=== PATIENT | female | born 1945 | race Caucasian/White ===

== ENCOUNTER 2019-09-30 11:24 | Inpatient (IN) | payer MEDICARE, OTHER, SELFPAY ==
[2019-09-30] VITALS (15 sets, daily range): BP systolic 129–191; BP diastolic 54–77; PULSE 62–89; RESP 16–20; TEMP 37–37.1; O2SAT 90–100; BMI 47.9
--- NOTE | 2019-09-30 11:36 | CT_ITS ---
WS: [id number] CT CERVICAL TRAUMA TECHNIQUE: Noncontrast CT of the cervical spine with coronal and sagittal reformatted images. CLINICAL INFORMATION: neck pain COMPARISON: None. DLP: 921.[address] scans at [facility] use at least one of these dose optimization techniques: automat ed exposure control; mA and/or kV adjustment per patient size (includes targeted exams where dose is matched to clinical indication); or iterative reconstruction. FINDINGS: Straightening of the normal cervical lordosis. Mild cervical curve. Moderate spondylitic changes. 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 Disc space narrowing worse at C6-7. Moderate facet arthropathy thr oughout the cervical spine. Normal craniocervical junction. Normal C1-C2 articulation. Dens is normal in appearance. Normal occipital condyles. No high-grade spinal canal narrowing. Normal C1 ring. No e vidence of acute fracture or dislocation. Normal prevertebral soft tissues. Azygos fissure. A few nodules in the thyroid. The largest in the ri ght thyroid lobe measuring 5 mm and isthmus measuring 6 mm. Mastoids air cells are well aerated. Notified Kee Byrne DO at 09/30/2019 12:[address]/CT cervical spin wo con* [id number] IMPRESSION: 1. No evidence of acute fracture or dislocation. 2. Moderate spondylitic changes. 3. No high-grade central canal stenosis.
--- NOTE | 2019-09-30 11:36 | ECG_ITS ---
Measurements Intervals Schlater Rate: 64 P: 30 CO: 187 QRS: -18 QRSD: 110 T: 97 QT: 415 QTc: 428 SINUS RHYTHM POSSIBLE ANTERIOR MYOCARDIAL INFARCTION [30 ms Q WAVE IN V3/V4, OR R < 0.2 mV IN V4], OF INDETERMINATE AGE INFERIOR MYOCARDIAL INFARCTION [40+ ms Q WAVE AND/OR ST/T ABNORMALITY IN II/aVF], PROBABLY OLD Compared to ECG 04/01/2018 21:11:24 Sinus arrhythmia no longer present Myocardial infarct finding still present Electronically Signed On 10-01-2019 6:42:53 CDT by Jamin Fontanez M.D. [email or web address]
--- NOTE | 2019-09-30 11:37 | XR_ITS ---
WS: [id number] CHEST XRAY TECHNIQUE: Portable chest. CLINICAL INFORMATION: dyspnea/cough COMPARISON: April 04, 2018 FINDINGS: Heart: Cardiomegaly. Lungs: Lungs are clear. No consolidation or pleural effusion. Chronic emphysematous changes. Bones: Normal visualized bony structures. XR/XR chest 1V portable [id number] IMPRESSION: No acute chest findings
--- NOTE | 2019-09-30 11:39 | W.ED.FEVER ---
HPI - Fever General: Chief Complaint: Fever Stated Complaint: FEVER Time Seen by Provider: 09/30/19 11:27 History of Present Illness: HPI Narrative: 74-year-old female comes planes of fever. She presents here via EMS from a local snf. She evidently has had this for about 3 weeks they reported a T-max at the snf of up to 102 however EMS and our measurements were both at 98. She had previously had work-up for COVID chest x-ray UA and blood cultures all of which were negative. In addition of this she complaining of neck pain however states that began around [place] when she fell and hit her head on a door frame and since then she has had neck pain and stiffness. She states it did not correspond with the onset of this fever. She does have a open diabetic foot ulcer on the left heel and early breakdown on on the right heel. Additionally she has some sores on her sacral area. She denies shortness of breath she denies dysuria urgency or frequency she denies chest pain or abdominal pain no vomiting or diarrhea. There is a report from the snf of a hemoglobin that had gone from 8.4-7.6 although there are no identified points of bleeding. Patient does tell me she is on Coumadin. Associated symptoms: Deny abdominal pain, back/flank pain, chills, chest pain, diarrhea, dysuria, nasal congestion, nausea or vomiting Review of Systems Const: Denies: fever, chills, body aches, change in appetite, fatigue or malaise ENMT: Denies: throat pain, ear pain, nasal discharge or nasal congestion Card: Denies: chest pain, edema, shortness of breath on exertion or shortness of breath when lying down Resp: Denies: shortness of breath, productive cough or non-productive cough GI: Denies: abdominal pain, nausea, vomiting, vomiting blood, coffee grounds in vomit, diarrhea, constipation, bloating, blood in stool or black tarry stool : Denies: flank pain, difficulty urinating, painful urination, urinary frequency or urinary urgency Skin/Breast: Denies: rash or itching COUNTS INCLUDE 234 BEDS AT THE [facility] ED PFSH: Medical History Adenocarcinoma of endometrium, stage 2 Atrial fibrillation CKD (chronic kidney disease) Congestive heart failure Deep vein thrombosis Diabetes mellitus, type II Fibromyalgia Gastric reflux Hyperlipemia Hypothyroid Morbid obesity Pressure ulcer Surgical History H/O hysterectomy with oophorectomy History of bilateral salpingo-oophorectomy (BSO) Hx of cholecystectomy Family History (Updated 09/30/19 @ 16:23 by Boris Roldan MD) Other CAD (coronary artery disease) Diabetes Hypertension Social History (Updated 09/30/19 @ 16:23 by Boris Roldan MD) Smoking and tobacco status: never smoked Alcohol intake: never Substance/Drug Use: never Housing: Snf Marital status: / Physical Exam Const: COMMON NORMALS: no apparent distress GENERAL APPEARANCE: cooperative; not comfortable ORIENTATION/CONSCIOUSNESS: Yes awake, Yes oriented to person, Yes oriented to place and Yes oriented to time HENMT: COMMON NORMALS: normocephalic, head/scalp atraumatic, hearing grossly normal bilaterally, external ears normal, EAC's normal, TM's normal bilaterally, nasal mucous membranes and turbinates normal, moist oral mucous membranes and oropharynx normal HEAD & SCALP: normocephalic and atraumatic NOSE: nasal mucous membranes and turbinates normal EXTERNAL EAR: Yes external ears normal EXTERNAL AUDITORY CANAL: EAC's normal TYMPANIC MEMBRANE: TM's normal bilaterally Eye: COMMON NORMALS: PERRL, EOMs intact bilaterally, conjunctivae normal and no scleral icterus CONJUNCTIVA: Yes conjunctivae normal PUPIL: Yes PERRL Neck/C-Spine: COMMON NORMALS: full ROM, no lymphadenopathy, supple and no JVD Lymph: LYMPHATIC: no lymphadenopathy noted and no lymphedema noted Resp: COMMON NORMALS: normal respiratory effort, no retractions, no use of accessory muscles and clear to auscultation bilaterally AUSCULTATION: clear to auscultation bilaterally Cardio: COMMON NORMALS: no JVD, regular rate, regular rhythm and no murmurs RATE: regular rate RHYTHM: regular rhythm GI: COMMON NORMALS: soft to palpation and no hepatosplenomegaly AUSCULTATION: Yes normoactive bowel sounds PALPATION: Yes soft, No tender, No guarding and Yes no hepatosplenomegaly Extremity: COMMON NORMALS: normal to inspection, normal capillary refill, no clubbing, cyanosis or edema, no calf tenderness and no pedal edema Neuro: SENSORIUM/ORIENTATION: Yes oriented to person, Yes oriented to place and Yes oriented to time Skin: NARRATIVE SKIN EXAM: Open ulcer on the left heel about 2 cm irregular and round appears to be stage II-III. There is a developing ulcer with subcutaneous breakdown on the right heel. There are various buttock and presacral ulcers with partial thickness breakdown as well. No induration or erythema locally to any of these skin ulcerations. Course Vital Signs: Vital signs: Vital Signs Temperature 98.8 F 09/30/19 11:36 Pulse Rate 68 09/30/19 16:51 Respiratory Rate 16 09/30/19 16:51 Blood Pressure 162/77 09/30/19 16:51 Pulse Oximetry 100 09/30/19 16:51 MDM - Fever MDM Narrative: Medical decision making narrative: Still cannot find a definitive source of her fever the only thing I can find at this point is that she may have been back to her bacteremic from the ulcers. We will go ahead and admit her started on vancomycin and complete the work-up and get the cultures back before returning her to the snf. Lab Data: Attestation: I reviewed the patient's lab results. Labs: Lab Results 09/30/19 09/30/19 09/30/19 Range/Units 11:49 12:49 12:51 WBC 5.6 (4.0-10.0) 10^3/ uL RBC 2.93 L (4.1-5.3) 10^6/u L Hgb 8.0 L (11.5-15.3) g/dL Hct 26.7 L (37.0-47.0) % MCV 91.1 (81-99) fL MCH 27.3 L (28.0-34.0) pg MCHC 30.0 (30.0-36.0) g/dL RDW 14.4 (12.1-15.1) % Plt Count 184 (130-400) 10^3/c mm MPV 9.8 (7.4-10.4) fL Neut % (Auto) 73.7 % Lymph % (Auto) 14.4 % Hooker % (Auto) 10.5 % Eos % (Auto) 0.5 % Baso % (Auto) 0.5 % Neut # (Auto) 4.2 (1.8-7.7) 10^3/u L Lymph # (Auto) 0.8 (0.8-4.8) 10^3/u L Hooker # (Auto) 0.6 (0.2-0.9) 10^3/u L Eos # (Auto) 0.0 (0.0-0.8) 10^3/u L Baso # (Auto) 0.0 (0.0-0.1) 10^3/u L Nucleated RBC % (a uto) 0 % Nucleated RBCs # 0.0 /100WBC PT (10.5-13.3) SECO NDS INR (0.8-1.2) Specimen Type Arterial Sample Site Femoral, left ABG pH 7.47 H (7.35-7.45) ABG pCO2 42.3 (35-45) mmHg ABG pO2 66.0 L (80.0-100.0) mmH g ABG HCO3 30.9 H (22-26) mmol/L ABG O2 Saturation 94.0 ABG Base Excess 6.5 H (-2.0-2.0) mmol/ L Chan Test Pos A-a O2 Gradient 30.1 H (5-10) mmHg Hematocrit 38.0 (37-47) % Hgb O2 Saturation 92.1 L (95-100) % Carboxyhemoglobin 1.7 (0.4-20.1) %THgb Methemoglobin 0.3 L (0.4-1.5) % Total Hemoglobin 12.4 (12-16) g/dL Sodium 140.0 (131-143) mmol/L Potassium 3.4 L (3.5-5.0) mmol/L Glucose 213.0 H (70-115) mg/dL Ionized Calcium 1.2 (1.1-1.4) mmol/L O2 Delivery Device Room air FiO2 21.0 % Superintendent Generating Plant ID anonymous Chloride (98-107) mmol/L Carbon Dioxide (22-29) mmol/L Anion Gap (5-19) BUN (8-23) mg/dL Creatinine (0.5-0.9) mg/dL Calculated Osmolal ity (285-295) mOsm/k g Calcium (8.5-10.5) mg/dL Iron (37-145) ug/dL TIBC mcg/dl % Saturation (20-50) % Unsat Iron Binding (112-347) ug/dL Total Bilirubin (0.15-1.2) mg/dL AST (0-32) U/L ALT (0-33) U/L Alkaline Phosphata se (35-105) IU/L NT-Pro-B Natriuret Pep (0-125) pg/mL Total Protein (6.6-8.7) g/dL Albumin (3.5-5.2) g/dL Globulin (1.3-4.6) g/dL Lipase (13-60) U/L Procalcitonin (0-0.5) ng/mL Urine Color Yellow (Yellow) Urine Appearance Clear (CLEAR) Urine pH 5 (5-7) Ur Specific Gravit y 1.010 (1.005-1.030) Urine Protein Neg (Negative) Urine Glucose (UA) Norm (Normal) Urine Ketones Negative (Negative) Urine Blood Neg (Negative) Urine Nitrate Negative (Negative) Urine Bilirubin Neg (NEGATIVE) Urine Urobilinogen Norm (Negative) mg/dL Ur Leukocyte Cassandra ase Negative (Negative) Serum Ketones (Negative) 09/30/19 09/30/19 09/30/19 Range/Units 12:51 12:51 12:51 WBC (4.0-10.0) 10^3/ uL RBC (4.1-5.3) 10^6/u L Hgb (11.5-15.3) g/dL Hct (37.0-47.0) % MCV (81-99) fL MCH (28.0-34.0) pg MCHC (30.0-36.0) g/dL RDW (12.1-15.1) % Plt Count (130-400) 10^3/c mm MPV (7.4-10.4) fL Neut % (Auto) % Lymph % (Auto) % Hooker % (Auto) % Eos % (Auto) % Baso % (Auto) % Neut # (Auto) (1.8-7.7) 10^3/u L Lymph # (Auto) (0.8-4.8) 10^3/u L Hooker # (Auto) (0.2-0.9) 10^3/u L Eos # (Auto) (0.0-0.8) 10^3/u L Baso # (Auto) (0.0-0.1) 10^3/u L Nucleated RBC % (a uto) % Nucleated RBCs # /100WBC PT 21.90 H (10.5-13.3) SECO NDS INR 1.83 H (0.8-1.2) Specimen Type Sample Site ABG pH (7.35-7.45) ABG pCO2 (35-45) mmHg ABG pO2 (80.0-100.0) mmH g ABG HCO3 (22-26) mmol/L ABG O2 Saturation ABG Base Excess (-2.0-2.0) mmol/ L Chan Test A-a O2 Gradient (5-10) mmHg Hematocrit (37-47) % Hgb O2 Saturation (95-100) % Carboxyhemoglobin (0.4-20.1) %THgb Methemoglobin (0.4-1.5) % Total Hemoglobin (12-16) g/dL Sodium 138 (131-143) mmol/L Potassium 3.5 (3.5-5.0) mmol/L Glucose 229 H (70-115) mg/dL Ionized Calcium (1.1-1.4) mmol/L O2 Delivery Device FiO2 % Superintendent Generating Plant ID Chloride 97 L (98-107) mmol/L Carbon Dioxide 29 (22-29) mmol/L Anion Gap 15.5 (5-19) BUN 86 H* (8-23) mg/dL Creatinine 2.5 H (0.5-0.9) mg/dL Calculated Osmolal ity 293 (285-295) mOsm/k g Calcium 9.2 (8.5-10.5) mg/dL Iron (37-145) ug/dL TIBC mcg/dl % Saturation (20-50) % Unsat Iron Binding (112-347) ug/dL Total Bilirubin 0.5 (0.15-1.2) mg/dL AST 42 H (0-32) U/L ALT 22 (0-33) U/L Alkaline Phosphata se 108 H (35-105) IU/L NT-Pro-B Natriuret Pep (0-125) pg/mL Total Protein 6.1 L (6.6-8.7) g/dL Albumin 2.7 L (3.5-5.2) g/dL Globulin 3.4 (1.3-4.6) g/dL Lipase 106 H (13-60) U/L Procalcitonin (0-0.5) ng/mL Urine Color (Yellow) Urine Appearance (CLEAR) Urine pH (5-7) Ur Specific Gravit y (1.005-1.030) Urine Protein (Negative) Urine Glucose (UA) (Normal) Urine Ketones (Negative) Urine Blood (Negative) Urine Nitrate (Negative) Urine Bilirubin (NEGATIVE) Urine Urobilinogen (Negative) mg/dL Ur Leukocyte Cassandra ase (Negative) Serum Ketones Negative (Negative) 09/30/19 Range/Units 12:51 WBC (4.0-10.0) 10^3/ uL RBC (4.1-5.3) 10^6/u L Hgb (11.5-15.3) g/dL Hct (37.0-47.0) % MCV (81-99) fL MCH (28.0-34.0) pg MCHC (30.0-36.0) g/dL RDW (12.1-15.1) % Plt Count (130-400) 10^3/c mm MPV (7.4-10.4) fL Neut % (Auto) % Lymph % (Auto) % Hooker % (Auto) % Eos % (Auto) % Baso % (Auto) % Neut # (Auto) (1.8-7.7) 10^3/u L Lymph # (Auto) (0.8-4.8) 10^3/u L Hooker # (Auto) (0.2-0.9) 10^3/u L Eos # (Auto) (0.0-0.8) 10^3/u L Baso # (Auto) (0.0-0.1) 10^3/u L Nucleated RBC % (a uto) % Nucleated RBCs # /100WBC PT (10.5-13.3) SECO NDS INR (0.8-1.2) Specimen Type Sample Site ABG pH (7.35-7.45) ABG pCO2 (35-45) mmHg ABG pO2 (80.0-100.0) mmH g ABG HCO3 (22-26) mmol/L ABG O2 Saturation ABG Base Excess (-2.0-2.0) mmol/ L Chan Test A-a O2 Gradient (5-10) mmHg Hematocrit (37-47) % Hgb O2 Saturation (95-100) % Carboxyhemoglobin (0.4-20.1) %THgb Methemoglobin (0.4-1.5) % Total Hemoglobin (12-16) g/dL Sodium (131-143) mmol/L Potassium (3.5-5.0) mmol/L Glucose (70-115) mg/dL Ionized Calcium (1.1-1.4) mmol/L O2 Delivery Device FiO2 % Superintendent Generating Plant ID Chloride (98-107) mmol/L Carbon Dioxide (22-29) mmol/L Anion Gap (5-19) BUN (8-23) mg/dL Creatinine (0.5-0.9) mg/dL Calculated Osmolal ity (285-295) mOsm/k g Calcium (8.5-10.5) mg/dL Iron 33 L (37-145) ug/dL TIBC 254 mcg/dl % Saturation 12.9 L (20-50) % Unsat Iron Binding 221 (112-347) ug/dL Total Bilirubin (0.15-1.2) mg/dL AST (0-32) U/L ALT (0-33) U/L Alkaline Phosphata se (35-105) IU/L NT-Pro-B Natriuret Pep 1235 H (0-125) pg/mL Total Protein (6.6-8.7) g/dL Albumin (3.5-5.2) g/dL Globulin (1.3-4.6) g/dL Lipase (13-60) U/L Procalcitonin 0.39 (0-0.5) ng/mL Urine Color (Yellow) Urine Appearance (CLEAR) Urine pH (5-7) Ur Specific Gravit y (1.005-1.030) Urine Protein (Negative) Urine Glucose (UA) (Normal) Urine Ketones (Negative) Urine Blood (Negative) Urine Nitrate (Negative) Urine Bilirubin (NEGATIVE) Urine Urobilinogen (Negative) mg/dL Ur Leukocyte Cassandra ase (Negative) Serum Ketones (Negative) Discharge Plan Discharge Patient Disposition: Admitted As Inpatient Admit Provider: Rubina Bragg Clinical Impression: Fever of unknown origin, Congestive heart failure, Diabetes mellitus, type II, CKD (chronic kidney disease) Condition: Stable Interventions: ED Discharge Assessment Last Done: 09/30/19 16:51 Coding Level of Care Code ED Stock Control Clerk for Mark Fwd Exam Comprehensive
[2019-09-30 11:59] LABS: ABG PH Result 7.47 (7.35-7.45); Blood Gas Sample Site Femoral, left; Blood Gas Sample Type Arterial; Carboxyhemoglobin 1.7 %THgb (0.4-20.1); Ionized Calcium Level - ABG 1.2 mmol/L (1.1-1.4); Oxygen Device ROOM AIR; Potassium Level - ABG 3.4 mmol/L (3.5-5.0)
--- NOTE | 2019-09-30 12:32 | PC.NURSE ---
Pt returned from CT
--- NOTE | 2019-09-30 12:39 | CT_ITS ---
WS: [id number] Noncontrast CT right foot TECHNIQUE: Noncontrast CT right foot with coronal and sagittal reformatted images. CLINICAL INFORMATION: diabetic heel ulcer COMPARISON: None. DLP: 179.[address] scans at [facility] use at least one of these dose optimization techniques: automat ed exposure control; mA and/or kV adjustment per patient size (includes targeted exams where dose is matched to clinical indication); or iterative reconstruction. FINDINGS:Ulceration overlying the calcaneus. No evidence of bony destruction to indicate osteomyeliti s. No convincing evidence of osteomyelitis. Diffuse soft tissue edema lower leg and ankle. Normal ankle mortise. Normal talar dome. Degenerative arthritis at the ankle mortise. Mild plantar and Achilles calcaneal spurring. Advanced degenerative a rthritis involving the midfoot and forefoot worse at the TMT joint. Osteopenia. Attempted notification Kee Byrne DO at 09/30/2019 2:[address]/CT foot RT wo con* [id number] IMPRESSION: 1. No definite evidence of calcaneal osteomyelitis. Soft tissue Ulceration ove rlying the calcaneus. 2. Diffuse soft tissue edema lower leg and ankle. 3. No drainable abscess or fluid collection. 4. Advanced degenerative changes with osteopenia involving the midfoot.
[2019-09-30] MEDS: morphine 4 mg/mL SDV 1 mL 2 MG IVP (12:41)
[2019-09-30] MEDS: ondansetron 2 mg/ML SDV 2 mL 4 MG IVP (12:41)
--- NOTE | 2019-09-30 12:54 | PC.NURSE ---
Pt brief wet, pt given clean brief and michelle-care after cath. Heel boots placed on pt.
[2019-09-30 13:07] LABS: Basophils % 0.5 %; Eosinophils % 0.5 %; Hematocrit 26.7 % (37.0-47.0); Lymphocytes # 0.8 10^3/uL (0.8-4.8); Lymphocytes % 14.4 %; Mean Corpuscular Hemoglobin 27.3 pg (28.0-34.0); Mean Corpuscular Volume 91.1 fL (81-99); Mean Platelet Volume 9.8 fL (7.4-10.4); Monocytes # 0.6 10^3/uL (0.2-0.9); Monocytes % 10.5 %; Neutrophils # 4.2 10^3/uL (1.8-7.7); Neutrophils % 73.7 %; Nucleated Red Blood Cells % 0 %; Platelet Count 184 10^3/cmm (130-400); Red Blood Count 2.93 10^6/uL (4.1-5.3); Red Cell Distribution Width 14.4 % (12.1-15.1); White Blood Count 5.6 10^3/uL (4.0-10.0)
[2019-09-30 13:08] LABS: Add Urine Microscopic? NO; Bilirubin Urine Neg (NEGATIVE); Blood Urine Neg (Negative); Glucose Urine UA Norm (Normal); Ketones Urine Negative (Negative); Leukocyte Esterase Urine Negative (Negative); Nitrate Urine Negative (Negative); Protein Urine Neg (Negative); Urine Appearance Clear (CLEAR); Urine Color Yellow (Yellow); Urobilinogen Urine Norm (Negative); pH Urine 5 (5-7)
[2019-09-30 13:22] LABS: Ketone (Acetest) Serum Negative (Negative)
[2019-09-30 13:29] LABS: Alanine Aminotransferase 22 U/L (0-33); Albumin Level 2.7 g/dL (3.5-5.2); Alkaline Phosphatase 108 IU/L (35-105); Anion Gap 15.5 (5-19); Aspartate Amino Transferase 42 U/L (0-32); Calcium 9.2 mg/dL (8.5-10.5); Carbon Dioxide 29 mmol/L (22-29); Chloride 97 mmol/L (98-107); Globulin 3.4 g/dL (1.3-4.6); Glucose 229 mg/dL (65-115); Lipase 106 U/L (13-60); Osmolality Calculated 293 mOsm/kg (285-295); Potassium 3.5 mmol/L (3.5-5.1); Sodium 138 mmol/L (136-145); Total Bilirubin 0.5 mg/dL (0.15-1.2); Total Protein 6.1 g/dL (6.6-8.7)
[2019-09-30 13:30] LABS: Blood Urea Nitrogen 86 mg/dL (8-23)
--- NOTE | 2019-09-30 13:49 | PC.NURSE ---
Pt to CT
--- NOTE | 2019-09-30 14:15 | CT_ITS ---
WS: [id number] NONCONTRAST CT LEFT FOOT TECHNIQUE: Noncontrast CT left foot with coronal and sagittal reformatted images. CLINICAL INFORMATION: ulcer COMPARISON: None. DLP: 242.[address] scans at [facility] use at least one of these dose optimization techniques: automat ed exposure control; mA and/or kV adjustment per patient size (includes targeted exams where dose is matched to clinical indication); or iterative reconstruction. FINDINGS: Diffuse soft tissue edema lower leg and ankle and foot. No drainable fluid collections or abscess. Re ported soft tissue ulceration overlying the calcaneus. Small amount of fluid along the plantar portio n of the calcaneus presumably corresponds to area of ulceration. No evidence of underlying bone destr uction or periosteal reaction in the calcaneus to indicate osteomyelitis. Plantar and Achilles calcaneal spurring. Advanced degenerative changes involving the midfoot worse at the TMT joint with dorsal spurring. Subchondral cystic change involving the metatarsal bases. IP mackenzie nt narrowing. Normal medial and lateral malleolus. Normal talar dome. Vascular calcification. CT/CT foot LT wo con* [id number] IMPRESSION: 1. No evidence of osteomyelitis. 2. Small amount of focal edema and fluid along the plantar calcaneal soft tiss ues presumably corresponds to ulceration. No drainable abscess or fluid collect ion. 3. Extensive subcutaneous edema involving the lower leg and ankle. 4. Advanced degenerative arthritis worse involving the midfoot and TMT joint.
[2019-09-30 15:18] LABS: ABG PCO2 42.3 mmHg (35-45); Alveolar-Arterial Oxygen Gradi 30.1 mmHg (5-10); Base Excess ABG 6.5 mmol/L (-2.0-2.0); Blood Gas Allen Test Pos; HCO3 ABG 30.9 mmol/L (22-26); HGB O2 Sat 92.1 % (95-100); Methemoglobin 0.3 % (0.4-1.5); Total Hemoglobin 12.4 g/dL (12-16)
--- NOTE | 2019-09-30 16:03 | USCV_ITS ---
Sheri Acosta Age: 74 Gender: F : 1945 Exam Date: 09/30/2019 17:03 Ordering Phys: Boris Roldan MD Technologist: Marilyn Montero [place] [facility] [place]ication: SWELLING HISTORY: Lower extremity swelling. PROCEDURES: Venous duplex imaging was performed in bilateral lower extremities. The following venous structures were evaluated: common femoral vein, profunda vein, proximal portion of the greater saphenous vein, superficial femoral vein, and the popliteal vein. In addition, the posterior tibial and peroneal trunk were evaluated. Serial compression, augmentation maneuvers, and spectral Doppler flow evaluation were performed. FINDINGS: Normal 2-D Doppler and augmentation and compressibility throughout the lower extremity venous structures. Additional imaging through the proximal calf veins also reveals no thrombus. Limited evaluation of the greater saphenous vein is patent with no thrombus.. The veins were found to be easily compressible with spontaneous blood flow. Non pulsatile flow pattern. CONCLUSIONS No evidence of DVT in the above-mentioned identifiable veins. Dr Krishna Padilla MD [facility] (Electronically Signed) Final Date: 30 September 2019 18:05 S
--- NOTE | 2019-09-30 16:08 | CT_ITS ---
WS: [id number] CT CHEST, ABDOMEN, AND PELVIS TECHNIQUE: Noncontrast CT of the chest, abdomen, and pelvis with coronal and sagittal reformatted parmjit ges. CLINICAL INFORMATION: sepsis COMPARISON: None. DLP: 3371.[address] scans at [facility] use at least one of these dose optimization techniques: automat ed exposure control; mA and/or kV adjustment per patient size (includes targeted exams where dose is matched to clinical indication); or iterative reconstruction. CT CHEST: Small bilateral pleural effusions. Bibasilar atelectasis. No mediastinal or hilar lymphadenopathy. No rmal caliber thoracic aorta. No axillary lymphadenopathy. Azygos lobe. Shallow inspiration. Mild photography editor tito emphysematous changes. Cardiomegaly. Hypertrophic changes thoracic spine. Mild thoracic curve wit h mild thoracic kyphosis. CT ABDOMEN AND PELVIS: Prior cholecystectomy and hysterectomy. Hepatomegaly with a large left hepatic lobe. Noncontrast live r is otherwise normal. Cholecystectomy clips. Noncontrast spleen is normal. Small splenule. Adrenal glands are normal. Normal GE junction. Vascular calcification. Adrenal glands are normal. No hydronephrosis. No obstructing renal or ureteral calculi. Urine distended bladder. Aortic calcificati on. No periaortic retroperitoneal lymphadenopathy. Fat-containing umbilical hernia. No inguinal lymphadenopathy. No pelvic lymphadenopathy. Probable hem angioma L3 vertebral body. CT/CT chest abd pel wo con IMPRESSION: 1. Small bilateral pleural effusions with bibasilar atelectasis. 2. No mediastinal or hilar lymphadenopathy. 3. Prior hysterectomy and cholecystectomy. 4. Hepatomegaly. Enlarged left hepatic lobe. Recommend correlation with liver function tests. Normal noncontrast spleen. 5. No hydronephrosis in either kidney. 6. Normal caliber abdominal aorta. 7. No free fluid in the pelvis. 8. Urine distended bladder. 9. Fat-containing umbilical hernia. 10. No acute abdominal or pelvic findings.
--- NOTE | 2019-09-30 16:19 | PM.HP ---
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 Most of the history was taken from the group home on phone. Patient was apparently transferred to [facility] from [facility] 2 weeks ago where she was admitted for a possible sepsis. As per the nursing in charge at [facility] patient was on ampicillin 500 mg 4 times a day which she last took on September 15. Because patient continued to have fevers going up to 101 Fahrenheit blood work was done along with urine analysis and COVID 19 testing which all came back negative. Patient's COVID 19 test was negative as per the group home on September 23. On evaluation patient is lying comfortably in bed, AO x3 states he has been transferred over here because she has been having had fevers. Patient denies of having any dysuria, cough, shortness of breath but complains of having nausea, 2-3 episodes of vomiting in last 1 week when vomitus contained of food particles, not bloodstained not foul-smelling along with 2-3 episodes of diarrhea. Patient states she has been having diarrhea for a long time because of history of pancreatitis and to her diarrhea seems to be the same as her baseline. Fever is intermittent high is going up to 101 Fahrenheit, not associated with chills or rigors. Patient is also complaining of mild abdominal pain but denies of having any dizziness, palpitations, headache. She is complaining of mild pain in her right leg. Patient is also complaining of pain in her back and neck which she states is her baseline. In the ER blood work showed hemoglobin of 8, normal white count without any left shift, subtherapeutic INR, hypoxia on ABG, creatinine of 2.5 with elevated BUN and a normal UA. Review of Systems Const: Reports: fever; Denies: chills, body aches, change in appetite, malaise, night sweats, diaphoresis, change in sleep pattern, daytime sleepiness or snoring Eyes: Denies: change in vision, blurry vision, photophobia, eye discomfort or eye discharge ENMT: Denies: throat pain, enlarged tonsils, hoarseness, mouth pain, oral sores/lesions, dry mouth, tinnitus, nasal congestion or post nasal drip Card: Denies: chest pain, palpitations, irregular heart rhythm, edema, swelling of feet/ankles, lightheadedness, syncope, pre-syncope, shortness of breath on exertion, shortness of breath when lying down, leg pain with exertion or bluish discoloration of hands/feet Resp: Denies: shortness of breath, productive cough, non-productive cough, wheezing, stridor, pain on inspiration, change in phlegm color, coughing up blood or chest congestion GI: Reports: abdominal pain, nausea, vomiting and diarrhea; Denies: vomiting blood, coffee grounds in vomit, difficulty swallowing, heartburn/indigestion, constipation, bloating, cramping, change in bowel habits, painful bowel movements, blood in stool or black tarry stool : Denies: flank pain, painful urination, urinary frequency, urinary urgency, urinary hesitancy, nighttime urination or blood in urine Musc: Reports: neck pain and back pain; Denies: extremity pain, joint pain, joint swelling, redness, joint stiffness or limited range of motion Neuro: Denies: headache, numbness in extremities, weakness in extremities, changes in sensation, lack of coordination, difficulty walking, frequent falls, dizziness, vertigo, confusion, slurred speech, difficulty communicating thoughts or seizure-like activity Psych: Denies: anxiety, depression, mood swings, panic attacks, hopelessness or irritability Endo: Denies: excessive urination, excessive thirst, tired all the time, cold intolerance, excessive sweating, flushing or heat intolerance Ford/Lymph: Denies: easy bruising or easy bleeding All/Imm: Denies: tongue swelling, facial swelling or acute wheezing Medications/Allergies Home Medications Medication Instructions Recorded Confirmed Last Taken Type Barrier Cream See Rx Instructions .ROUTE .COMPLEX 09/30/19 09/30/19 09/30/19 History Prostat 30ml See Rx Instructions .ROUTE .COMPLEX 09/30/19 09/30/19 09/30/19 History Skin Prep Wipes 09/30/19 09/30/19 Unknown History acetaminophen 500 mg PO Q4H PRN 09/30/19 09/30/19 09/30/19 09:22 History amiodarone 100 mg PO DAILY 09/30/19 09/30/19 09/30/19 09:22 History amlodipine 5 mg PO DAILY 09/30/19 09/30/19 Unknown History atorvastatin 20 mg PO DAILY 09/30/19 09/30/19 09/29/19 20:47 History baclofen 2.5 mg PO TID PRN 09/30/19 09/30/19 09/30/19 09:22 History bisacodyl 10 mg NC DAILY PRN 09/30/19 09/30/19 Unknown History collagenase clostridium histo. See Rx Instructions .ROUTE .COMPLEX 09/30/19 09/30/19 Unknown History [Santyl] dicyclomine 10 mg PO TID 09/30/19 09/30/19 09/29/19 History ergocalciferol (vitamin D2) 50,000 unit PO Q7D 09/30/19 09/30/19 Unknown History gabapentin 600 mg PO TID 09/30/19 09/30/19 09/30/19 09:22 History honey [MediHoney (honey)] See Rx Instructions .ROUTE .COMPLEX 09/30/19 09/30/19 09/29/19 History insulin aspart U-100 [Novolog 40 unit SUBCUT TID 09/30/19 09/30/19 Unknown History Flexpen U-100 Insulin] insulin degludec [Tresiba 60 unit SUBCUT QAM 09/30/19 09/30/19 09/29/19 History FlexTouch U-200] levothyroxine 100 mcg PO DAILY 09/30/19 09/30/19 09/30/19 05:31 History hgbkyz-zffzhfvk-sfhriwy [Creon] 2 cap PO TID 09/30/19 09/30/19 09/30/19 09:22 History menthol See Rx Instructions .ROUTE .COMPLEX 09/30/19 09/30/19 Unknown History menthol [Biofreeze (menthol)] See Rx Instructions .ROUTE .COMPLEX 09/30/19 09/30/19 Unknown History metolazone 5 mg PO EVERY OTHER DAY 09/30/19 09/30/19 09/30/19 History metoprolol succinate 37.5 mg PO DAILY 09/30/19 09/30/19 09/29/19 History kytzdjkjcvxr-tdhh-cnmue acid 1 tab PO DAILY 09/30/19 09/30/19 09/30/19 09:22 History [Multi Complete with Iron] pantoprazole [Protonix] 40 mg PO DAILY 09/30/19 09/30/19 09/30/19 09:22 History polyethylene glycol 3350 [Miralax] 17 g PO DAILY PRN 09/30/19 09/30/19 Unknown History sennosides-docusate sodium 1 tab PO BID PRN 09/30/19 09/30/19 09/29/19 History [Senna-S] sodium phosphates [Enema 118 ml NC DAILY PRN 09/30/19 09/30/19 Unknown History Disposable] torsemide 20 mg PO DAILY 09/30/19 09/30/19 09/30/19 09:22 History warfarin See Rx Instructions .ROUTE .COMPLEX 09/30/19 09/30/19 09/28/19 History warfarin See Rx Instructions .ROUTE .COMPLEX 09/30/19 09/30/19 09/29/19 History Allergies Allergy/AdvReac Type Severity Reaction Status Date / Time cortisone Allergy ALGY-Anaphy Verified 09/30/19 11:37 laxis PFSH Acute PFSH: Medical History Adenocarcinoma of endometrium, stage 2 Atrial fibrillation CKD (chronic kidney disease) Congestive heart failure Deep vein thrombosis Diabetes mellitus, type II Fibromyalgia Gastric reflux Hyperlipemia Hypothyroid Morbid obesity Pressure ulcer Surgical History H/O hysterectomy with oophorectomy History of bilateral salpingo-oophorectomy (BSO) Hx of cholecystectomy Family History (Updated 09/30/19 @ 16:23 by Boris Roldan MD) Other CAD (coronary artery disease) Diabetes Hypertension Social History (Updated 09/30/19 @ 16:23 by Boris Roldan MD) Smoking and tobacco status: never smoked Alcohol intake: never Substance/Drug Use: never Housing: Residential Marital status: / Vitals/I&O/Wt Last Vital Signs Temp 98.8 F 09/30/19 11:36 Pulse 65 09/30/19 16:00 Resp 16 09/30/19 16:00 BP 167/77 09/30/19 16:00 Pulse Ox 98 09/30/19 16:00 Weight last 48 hrs Weight 122.924 kg Physical Exam Narrative: EXAM NARRATIVE: General: No acute distress, AO x3, morbidly obese, lying comfortably in bed HEENT: PERRLA, pupils bilaterally equal and reactive Chest: Normal vesicular breath sounds, decreased air entry bilateral bases, associated with occasional rhonchi n CVS: S1-S2 regular, no murmurs, no tachycardia, no gallops, no rubs Abdomen: Soft, nontender, no organomegaly, bowel sounds present Neuro: No focal deficits, no facial deformity, AO x3, power 5/5 in all limbs. Skin:Open ulcer on the left heel about 2 cm irregular and round appears to be stage II-III. There is a developing ulcer with subcutaneous breakdown on the right heel. There are various buttock and presacral ulcers with partial thickness breakdown as well. No induration or erythema locally to any of these skin ulcerations. Data : 09/30/19 12:51 09/30/19 12:51 A&P Assessment and plan (1) Fever of unknown origin: Status: Acute (2) Decubital ulcer: Status: Acute (3) CKD (chronic kidney disease): Status: Acute (4) Hypertension: Status: Acute (5) Diabetes mellitus, type II: Status: Acute (6) Hypothyroid: Status: Acute (7) Atrial fibrillation: Status: Acute (8) Congestive heart failure: Status: Acute (9) Deep vein thrombosis: Status: Acute (10) Subtherapeutic anticoagulation: Status: Acute (11) Exocrine pancreatic insufficiency: Status: Acute Additional A&P Information Fever: Source as patient does not have any tachycardia, white count is normal, lactate awaited. We will try to get documents from [facility] regarding her prior admission. COVID 19 test done at the group home on September [address] chest abdomen pelvis without contrast as patient's creatinine is elevated to look for infiltrate, collection for cause of her fever. Patient has history of DVT in the past so we will check for lower limb Dopplers as that could be a cause of fever as well. Lactic acid with reflex, procalcitonin, blood culture, urinalysis, urine cultures, wound culture and Gram stain. For now start patient on vancomycin and Zosyn both renally dosed. Will de-escalate antibiotics as per culture results. Check MRSA swab. Patient's liver panel is deranged if no sign of any infection will go for HIDA scan to rule out cholecystitis. For now Zosyn will cover for cholecystitis. Check stool studies. Patient states he has been having diarrhea which could be a part of her pancreatitis but cannot rule out C. difficile given her recent admission. Decubitus ulcer: Stage II-III. Wound culture Gram stain as stated above. Dressing with Hydrofera Blue. If patient does not improve will get wound care consult. Check ESR/CRP. CKD: As per the group home patient's last creatinine was 2.4. 2.5 today. Medical reconciliation done for nephrotoxic drugs. Patient does not have any electrolyte abnormality, metabolic acidosis though her BUN is elevated but does not show any uremic signs. Check BMP daily. History of DVT: Lower limb Dopplers. INR is subtherapeutic so will increase the dose of Coumadin to 5 mg daily. Atrial fibrillation: Heart rate is well controlled. Continue with home dose of amiodarone, metoprolol. Hypertension: Blood pressure well controlled for now. Continue with home dose of amlodipine. Congestive heart failure: Of unknown variety. No echocardiogram in system. Check echocardiogram. Check proBNP. Patient is euvolemic for now. Will not give her any IV fluids and withhold her torsemide and metolazone for now. Strict input output charting. Daily weights. Type 2 diabetes mellitus: Check HbA1c. Insulin sliding scale at moderate dose. Glargine 60 units every morning. Chronic pancreatitis: Continue home dose of Creon. Cardiac diabetic diet. Warfarin will help with DVT prophylaxis. Full code Attestations Medical Necessity Statement*: More than 2 midnights for evaluation of fever/sepsis Time Spent in Patient Care: Greater than 35 minutes (>than 50% of time spent in counselling and/or direct pt care on unit). Coding Level of Care Code Acute Street Department Dispatcher for [facility] Diagnoses Fever of unknown origin R50.9 Decubital ulcer L89.90 CKD (chronic kidney disease) N18.9 Hypertension I10 Diabetes mellitus, type II E11.9 Hypothyroid E03.9 Atrial fibrillation I48.91 Congestive heart failure I50.9 Deep vein thrombosis I82.409 Subtherapeutic anticoagulation Z51.81; Z79.01 Exocrine pancreatic insufficiency K86.81
[2019-09-30 16:51] LABS: INR 1.83 (0.8-1.2)
[2019-09-30 17:05] LABS: NT Pro B Type Natriuretic Pept 1235 pg/mL (0-125); Procalcitonin 0.39 ng/mL (0-0.5)
[2019-09-30 17:16] LABS: Iron 33 ug/dL (37-145); Percent Saturation 12.9 % (20-50); Total Iron Binding Capacity 254 mcg/dl; Unsaturated Iron Binding 221 ug/dL (112-347)
[2019-09-30 17:38] LABS: Lactic Sepsis W/Reflex 1.2 mmol/L (0.5-2.2)
--- NOTE | 2019-09-30 18:30 | PC.NURSE ---
Patient arrived from the ER at this time. Report on patient is that she has been having fevers of 102-103 since September 11 2019. Patient is currently residing at [facility] for rehab for her neck pain. Patient states that before going to [facility] she lived at home alone. Patient was a febrile here and in the ER. Patient's daughters would like her transferred to [facility] in [place] if she needs to be transferred anywhere. Patient has pressure ulcers to both heels. Optifoam and Hyroblue placed by Rima MCGOVERN to both heals. Left heel has Escher present. Patient has 2 pressure ulcers to her bottom. Left butt check has a small open area covered with Optifoam. Sacrum has pressure ulcer with hydoblue in place. Patient is A&Ox3. Respirations even and non-labored on 2 liters by nasal cannula. Patient states that she has been tested for the COVIID-19 twice since being at the residential.
[2019-09-30 19:00] LABS: Glucose Point of Care 215 mg/dL (70-110)
[2019-09-30] MEDS: gabapentin 300 mg Capsule PO (19:01)
[2019-09-30] MEDS: sodium chloride 0.9% 1,000 ML 100 ML IV (19:02)
[2019-09-30] MEDS: piperacillin-tazobactam 3.375 GM in sodium chloride 0.9% (plus) 50 ML IV (19:07)
[2019-09-30 20:32] LABS: Thyroid Stimulating Hormone 2.46 uIU/mL (0.27-4.20)
[2019-09-30] MEDS: atorvastatin 40 mg Tablet 20 MG PO (20:37)
[2019-09-30 21:17] LABS: Glucose Point of Care 206 mg/dL (70-110)
[2019-09-30 21:30] LABS: C Reactive Protein 42.7 mg/L (0.0-4.9)
[2019-09-30 22:01] LABS: Erythrocyte Sedimentation Rate 96 mm/hr (0-15)
[2019-10-01] VITALS (11 sets, daily range): BP systolic 135–186; BP diastolic 60–83; PULSE 59–83; RESP 15–18; TEMP 36.6–37.4; O2SAT 90–95
[2019-10-01] MEDS: piperacillin-tazobactam 3.375 GM in sodium chloride 0.9% (plus) 50 ML IV ×2 (01:18→09:16)
[2019-10-01] MEDS: acetaminophen 325 mg Tablet 650 MG PO ×3 (01:23→16:03)
[2019-10-01] MEDS: sodium chloride 0.9% 1,000 ML 100 ML IV (05:21)
[2019-10-01 05:35] LABS: Basophils % 0.4 %; Eosinophils # 0.1 10^3/uL (0.0-0.8); Eosinophils % 1.6 %; Hematocrit 25.2 % (37.0-47.0); Hemoglobin 7.2 g/dL (11.5-15.3); Lymphocytes # 0.8 10^3/uL (0.8-4.8); Lymphocytes % 14.5 %; Mean Corpuscular HGB Conc 28.6 g/dL (30.0-36.0); Mean Corpuscular Hemoglobin 26.6 pg (28.0-34.0); Mean Platelet Volume 9.7 fL (7.4-10.4); Monocytes # 0.5 10^3/uL (0.2-0.9); Monocytes % 9.3 %; Neutrophils % 73.7 %; Nucleated Red Blood Cells % 0 %; Platelet Count 157 10^3/cmm (130-400); Red Blood Count 2.71 10^6/uL (4.1-5.3); Red Cell Distribution Width 14.5 % (12.1-15.1); White Blood Count 5.5 10^3/uL (4.0-10.0)
[2019-10-01 06:02] LABS: Alanine Aminotransferase 20 U/L (0-33); Albumin Level 2.5 g/dL (3.5-5.2); Alkaline Phosphatase 84 IU/L (35-105); Anion Gap 15.6 (5-19); Aspartate Amino Transferase 32 U/L (0-32); Blood Urea Nitrogen 68 mg/dL (8-23); Calcium 8.9 mg/dL (8.5-10.5); Carbon Dioxide 30 mmol/L (22-29); Chloride 100 mmol/L (98-107); Globulin 3.3 g/dL (1.3-4.6); Glucose 120 mg/dL (65-115); Osmolality Calculated 294 mOsm/kg (285-295); Potassium 3.6 mmol/L (3.5-5.1); Sodium 142 mmol/L (136-145); Total Bilirubin 0.5 mg/dL (0.15-1.2); Total Protein 5.8 g/dL (6.6-8.7)
[2019-10-01 06:35] LABS: Glucose Point of Care 118 mg/dL (70-110)
--- NOTE | 2019-10-01 07:47 | PC.NURSE ---
In room to round on patient this morning and patient states, I am going to need you to feed me my neck hurts to bad to feed myself. Set up patient's tray and elevated patient in the bed 30 degrees then on up to 60 degrees. Patient given Tylenol for her pain. Patient is feeding herself at this time.
[2019-10-01] MEDS: amiodarone 200 mg Tablet 100 MG PO (08:49)
[2019-10-01] MEDS: gabapentin 300 mg Capsule PO ×2 (08:49→17:52)
[2019-10-01] MEDS: levothyroxine 100 mcg Tablet PO (08:49)
[2019-10-01] MEDS: pantoprazole DR 40 mg Tablet PO (08:50)
[2019-10-01] MEDS: amlodipine 5 mg Tablet PO (08:50)
[2019-10-01] MEDS: insulin glargine 100 units/1 mL 50 UNIT SUBCUT (08:50)
[2019-10-01] MEDS: metoprolol succinate ER (24 HR) 25 mg Tablet 37.5 MG PO (08:56)
--- NOTE | 2019-10-01 10:18 | PC.NURSE ---
Spoke with Luis RN at [facility]. Patient had a fall at home which brought her to the correction. Patient was a Codey Lift to get up but then could walk with a walker. Patient was becoming more and more lethargic and became a maximum assist with everything and that is why she was sent to the ER. Luis states that the pressure ulcers are from being at the correction the others she had when she arrived. Luis states the the patient has not fallen since being at the correction.
[2019-10-01 11:01] LABS: Glucose Point of Care 189 mg/dL (70-110)
--- NOTE | 2019-10-01 12:30 | PC.NURSE ---
Dr. Roldan requests that the Warfarin until tomorrow because Dr. Bravo will be seeing the patient for wound care.
--- NOTE | 2019-10-01 12:40 | PM.PN ---
Subjective Subjective: Interval history: No acute events overnight. Patient has remained afebrile. Patient found to have decubitus ulcer on her buttocks and bilateral heels. Today morning on evaluation patient is lying comfortably in bed. Complaining of neck pain. She states neck pain started after she was dropped at the shelter. On further evaluation not sure if patient had injury at shelter or at home. Records from [facility] reviewed. She was admitted for 3 days for arthralgia, pain in her shoulder, UTI and was discharged on ampicillin to SNF because of severe generalized weakness. Vitals/I&O/Wt Last Vital Signs Temp 98.9 F 10/01/19 11:58 Pulse 64 10/01/19 11:58 Resp 18 10/01/19 11:58 BP 160/64 10/01/19 11:58 Pulse Ox 92 10/01/19 11:58 09/30/19 10/01/19 10/01/19 22:59 06:59 14:59 Intake Total 120 / 120 1580 / 1700 Output Total 800 / 800 Balance 120 / 120 780 / 900 Weight last 48 hrs Weight 131.542 kg Weight 122.924 kg Physical Exam Narrative: EXAM NARRATIVE: General: No acute distress, AO x3, morbidly obese, lying comfortably in bed HEENT: PERRLA, pupils bilaterally equal and reactive Chest: Normal vesicular breath sounds, decreased air entry bilateral bases, associated with occasional rhonchi n CVS: S1-S2 regular, no murmurs, no tachycardia, no gallops, no rubs Abdomen: Soft, nontender, no organomegaly, bowel sounds present Neuro: No focal deficits, no facial deformity, AO x3, power 5/5 in all limbs. Skin:Open ulcer on the left heel about 2 cm irregular and round appears to be stage II-III. There is a developing ulcer with subcutaneous breakdown on the right heel. There are various buttock and presacral ulcers with partial thickness breakdown as well. No induration or erythema locally to any of these skin ulcerations. Urinary Catheter Management^: Waller: Cath Placed During This Visit: yes Reason for Continuing Indwelling Catheter: Assist Healing of Perineal & Sacral Wounds- Incontinent Patients Urinary Catheter Date of Insertion: 09/30/19 Urinary Catheter Time of Insertion: 18:00 Data : 10/01/19 05:02 10/01/19 05:02 Micro: Microbiology 04/23/20 05:30 MRSA Culture - Final Nose 09/30/19 18:00 Gram Stain - Final Buttock 09/30/19 16:52 Blood Culture - Preliminary Blood SPECIMEN COLLECTED 09/30/19 12:51 Blood Culture - Preliminary Blood SPECIMEN COLLECTED A&P Assessment and plan (1) Fever of unknown origin: Status: Acute (2) Decubital ulcer: Status: Acute (3) CKD (chronic kidney disease): Status: Acute (4) Hypertension: Status: Acute (5) Diabetes mellitus, type II: Status: Acute (6) Hypothyroid: Status: Acute (7) Atrial fibrillation: Status: Acute (8) Congestive heart failure: Status: Acute (9) Deep vein thrombosis: Status: Acute (10) Subtherapeutic anticoagulation: Status: Acute (11) Exocrine pancreatic insufficiency: Status: Acute Additional A&P Information Fever: Source as patient does not have any tachycardia, white count is normal, lactate awaited. We will try to get documents from [facility] regarding her prior admission. COVID 19 test done at the shelter on September [address] chest, abdomen/pelvis results appreciated. No acute sign of infection. Lower limb Dopplers negative for DVT. Procalcitonin, lactic acid all within normal limits. No leukocytosis or left shift. Patient does not have any nausea, vomiting and her liver functions are normal today so we will hold off on HIDA scan. Moreover on examination patient does not show any sign of cholecystitis/cholangitis. Patient has not had any more diarrhea chances of C. difficile or less. Given all the above will discontinue antibiotics for now and monitor patient for 24 more hours. Patient has not had any fever since admission. Decubitus ulcer: Stage II-III. Wound culture Gram stain as stated above. Dressing with Hydrofera Blue. If patient does not improve will get wound care consult. Discussed with radiology regarding possible osteomyelitis at decubitus ulcer. No signs of osteomyelitis on CT pelvis, CT foot. We will consult Dr. Post for recommendations with decubitus ulcer on buttocks and bilateral heels. CKD: As per the shelter patient's last creatinine was 2.4. 2.2 today. Medical reconciliation done for nephrotoxic drugs. Patient does not have any electrolyte abnormality, metabolic acidosis though her BUN is elevated but does not show any uremic signs. Check BMP daily. History of DVT: Lower limb Dopplers. INR is subtherapeutic so will increase the dose of Coumadin to 5 mg daily. Atrial fibrillation: Heart rate is well controlled. Continue with home dose of amiodarone, metoprolol. Hypertension: Blood pressure well controlled for now. Continue with home dose of amlodipine. Congestive heart failure: Of unknown variety. No echocardiogram in system. Echocardiogram results appreciated. Suboptimal study. We will restart patient's home dose of torsemide but will continue to hold off on metolazone. Patient remains euvolemic. Strict input output charting. Daily weights. Anemia: Iron deficiency anemia as iron studies suggestive. Start patient on oral iron supplementation. We will keep hemoglobin around 8 given history of congestive heart failure. We will transfuse monitor PRBC with 20 mg of IV Lasix during transfusion. Type 2 diabetes mellitus: Check HbA1c. Insulin sliding scale at moderate dose. Glargine 60 units every morning. Chronic pancreatitis: Continue home dose of Creon. Neck pain: Most likely neck sprain. CT neck appreciated. Diclofenac ointment for local application along with heat pad. Fentanyl patch 12 every 72 hours. Physical therapy. Discussed with patient in detail regarding need of strenuous physical therapy to help with generalized arthralgias and neck pain. Cardiac diabetic diet. Warfarin will help with DVT prophylaxis. Full code Attestations Medical Necessity Statement*: Decubitus ulcer, FUO Time Spent in Patient Care: Greater than 35 minutes Coding Level of Care Code Acute Foley Artist for [facility] Diagnoses Fever of unknown origin R50.9 Decubital ulcer L89.90 CKD (chronic kidney disease) N18.9 Hypertension I10 Diabetes mellitus, type II E11.9 Hypothyroid E03.9 Atrial fibrillation I48.91 Congestive heart failure I50.9 Deep vein thrombosis I82.409 Subtherapeutic anticoagulation Z51.81; Z79.01 Exocrine pancreatic insufficiency K86.81
--- NOTE | 2019-10-01 14:18 | P.CONIM_ITS ---
Providers/Reason For Consult Consulting Physican/Specialty*: Sreedhar Post MD Reason for Consult*: Pressure injury ulcers Attending Physician: Boris Roldan MD Primary Care Provider: VANESSA Polk History of Present Illness History of Present Illness Chief Complaint: I have sores History of present illness: Ms. Sheri Acosta is a pleasant 74 year old female morbidly obese with multiple medical comorbidities patient has been in a long-term and admitted on the hospitalist service for a wide spectrum of symptomatology, yet further evaluation by the hospitalist revealed concerns about bilateral gluteal pressure injury ulcers as well as bilateral he el ulcers. Patient is on chronic warfarin for atrial fibrillation and recent INR is being subtherapeutic per hospitalist prescription General surgery was consulted for further evaluation and potential intervention Review of Systems General: Reports: 10 or more systems reviewed and unremarkable except in HPI and below Meds/Allergies Home Medications and Allergies Home Medications Medication Instructions Recorded Confirmed Last Taken Type Barrier Cream See Rx Instructions .ROUTE .COMPLEX 09/30/19 09/30/19 09/30/19 History Prostat 30ml See Rx Instructions .ROUTE .COMPLEX 09/30/19 09/30/19 09/30/19 History Skin Prep Wipes 09/30/19 09/30/19 Unknown History acetaminophen 500 mg PO Q4H PRN 09/30/19 09/30/19 09/30/19 09:22 History amiodarone 100 mg PO DAILY 09/30/19 09/30/19 09/30/19 09:22 History amlodipine 5 mg PO DAILY 09/30/19 09/30/19 Unknown History atorvastatin 20 mg PO DAILY 09/30/19 09/30/19 09/29/19 20:47 History baclofen 2.5 mg PO TID PRN 09/30/19 09/30/19 09/30/19 09:22 History bisacodyl 10 mg MA DAILY PRN 09/30/19 09/30/19 Unknown History collagenase clostridium histo. See Rx Instructions .ROUTE .COMPLEX 09/30/19 09/30/19 Unknown History [Santyl] dicyclomine 10 mg PO TID 09/30/19 09/30/19 09/29/19 History ergocalciferol (vitamin D2) 50,000 unit PO Q7D 09/30/19 09/30/19 Unknown History gabapentin 600 mg PO TID 09/30/19 09/30/19 09/30/19 09:22 History honey [MediHoney (honey)] See Rx Instructions .ROUTE .COMPLEX 09/30/19 09/30/19 09/29/19 History insulin aspart U-100 [Novolog 40 unit SUBCUT TID 09/30/19 09/30/19 Unknown History Flexpen U-100 Insulin] insulin degludec [Tresiba 60 unit SUBCUT QAM 09/30/19 09/30/19 09/29/19 History FlexTouch U-200] levothyroxine 100 mcg PO DAILY 09/30/19 09/30/19 09/30/19 05:31 History dzsvqj-dhjrrtqx-zydkdev [Creon] 2 cap PO TID 09/30/19 09/30/19 09/30/19 09:22 History menthol See Rx Instructions .ROUTE .COMPLEX 09/30/19 09/30/19 Unknown History menthol [Biofreeze (menthol)] See Rx Instructions .ROUTE .COMPLEX 09/30/19 09/30/19 Unknown History metolazone 5 mg PO EVERY OTHER DAY 09/30/19 09/30/19 09/30/19 History metoprolol succinate 37.5 mg PO DAILY 09/30/19 09/30/19 09/29/19 History pnoygodtmihy-bhfq-vldxl acid 1 tab PO DAILY 09/30/19 09/30/19 09/30/19 09:22 History [Multi Complete with Iron] pantoprazole [Protonix] 40 mg PO DAILY 09/30/19 09/30/19 09/30/19 09:22 History polyethylene glycol 3350 [Miralax] 17 g PO DAILY PRN 09/30/19 09/30/19 Unknown History sennosides-docusate sodium 1 tab PO BID PRN 09/30/19 09/30/19 09/29/19 History [Senna-S] sodium phosphates [Enema 118 ml MA DAILY PRN 09/30/19 09/30/19 Unknown History Disposable] torsemide 20 mg PO DAILY 09/30/19 09/30/19 09/30/19 09:22 History warfarin See Rx Instructions .ROUTE .COMPLEX 09/30/19 09/30/19 09/28/19 History warfarin See Rx Instructions .ROUTE .COMPLEX 09/30/19 09/30/19 09/29/19 History Allergies Allergy/AdvReac Type Severity Reaction Status Date / Time cortisone Allergy ALGY-Anaphy Verified 10/01/19 14:49 laxis Current Medications Current Medications Generic Name Dose Route Start Last Admin Trade Name Freq PRN Reason Stop Dose Admin Acetaminophen 650 mg 09/30/19 18:02 10/01/19 07:40 Tylenol PO 650 mg Q6H PRN Administration Mild/Mod Pain Or Temp >/= 101 Amiodarone HCl 100 mg 10/01/19 09:00 10/01/19 08:49 Cordarone PO 100 mg DAILY HARVEY Administration Atorvastatin Calcium 20 mg 09/30/19 21:00 09/30/19 20:37 Lipitor PO 20 mg BEDTIME HARVEY Administration Gabapentin 300 mg 09/30/19 18:30 10/01/19 08:49 Neurontin PO 300 mg BID HARVEY Administration Vancomycin HCl 1,250 mg/ 250 mls @ 166.667 mls/hr 09/30/19 16:30 09/30/19 16:48 Sodium Chloride IV 166.7 mls/hr Q36H HARVEY Administration Protocol Piperacillin Sod/Tazobactam 50 mls @ 12.5 mls/hr 09/30/19 17:00 10/01/19 09:16 Sod 3.375 gm/ Sodium Chloride IV 12.5 mls/hr Q8H HARVEY Administration Protocol Insulin Aspart 0 unit 09/30/19 18:00 10/01/19 11:53 Novolog SUBCUT 8 unit WM&BEDTIME HARVEY Administration Protocol Insulin Glargine 50 unit 10/01/19 06:00 10/01/19 08:50 Lantus SUBCUT 50 unit QAM HARVEY Administration Levothyroxine Sodium 100 mcg 10/01/19 09:00 10/01/19 08:49 Synthroid PO 100 mcg DAILY HARVEY Administration Metoprolol Succinate 37.5 mg 10/01/19 09:00 10/01/19 08:56 Toprol Xl PO 37.5 mg DAILY HARVEY Administration Non-Formulary Medication 2 cap 09/30/19 21:00 10/01/19 08:50 Jmgztk-Lnaiizmz-Edpftoo [Creon] PO Not Given TID HARVEY Pantoprazole Sodium 40 mg 10/01/19 09:00 10/01/19 08:50 Protonix PO 40 mg DAILY HARVEY Administration PFSH Acute PFSH: Medical History Adenocarcinoma of endometrium, stage 2 Atrial fibrillation Back pain CKD (chronic kidney disease) Congestive heart failure Deep vein thrombosis Diabetes mellitus, type II Digoxin toxicity Exocrine pancreatic insufficiency Fibromyalgia Gastric reflux Hyperlipemia Hypothyroid Morbid obesity Pressure ulcer Surgical History H/O hysterectomy with oophorectomy History of bilateral salpingo-oophorectomy (BSO) Hx of cholecystectomy Family History Other CAD (coronary artery disease) Diabetes Hypertension Social History Smoking and tobacco status: never smoked Alcohol intake: never Substance/Drug Use: never Housing: [facility] Marital status: / Vitals/I&O/Wt Last Vital Signs Temp 98.9 F 10/01/19 11:58 Pulse 64 10/01/19 11:58 Resp 18 10/01/19 11:58 BP 160/64 10/01/19 11:58 Pulse Ox 92 10/01/19 11:58 09/30/19 10/01/19 10/01/19 22:59 06:59 14:59 Intake Total 120 / 120 1580 / 1700 240 / 240 Output Total 800 / 800 Balance 120 / 120 780 / 900 240 / 240 Weight last 48 hrs Weight 290 lb Weight 271 lb Physical Exam Narrative: EXAM NARRATIVE: Patient is conscious alert oriented X3 BMI 51.4 Head and neck examination PERRLA no masses no cervical lymphadenopathy no jaund ice Cardiac examination audible S1-S2 no murmurs no gallops no arrhythmias Chest is clear bilateral,abscence of Rhonchi or wheezes,no surgical emphysema Abdomen nontender nondistended soft no organomegaly guarding or rigidity/no signs of peritonitis Morbidly obese Pressure injury ulcers stages III of bilateral gluteal region measures average 2 x 2 centimeter Pressure injury ulcers of the left heel 3.0 x 3.0 x 0.1 cm gradeII Pressure injury ulcer of the right heel 3.5 x 3.5 x 0.1 cm grade II Urinary Catheter Management^: Waller: Cath Placed During This Visit: yes Reason for Continuing Indwelling Catheter: Assist Healing of Perineal & Sacral Wounds- Incontinent Patients Urinary Catheter Date of Insertion: 09/30/19 Urinary Catheter Time of Insertion: 18:00 Data Micro: Micro: Microbiology 10/01/19 05:30 MRSA Culture - Fin al Nose 09/30/19 18:00 Gram Stain - Final Buttock 09/30/19 16:52 Blood Culture - Pr eliminary Blood SPECIMEN [facility] CLAY 09/30/19 12:51 Blood Culture - Pr eliminary Blood SPECIMEN [facility] A&P Assessment and plan (1) Pressure ulcer: After thorough history physical examination and reviewing the chart and images with my personal interpretation, I did primary substance abuse counselor the patient in the presence of her nurse Danielle for surgical debridement of bilateral heel pressure injury ulcers, patient agreed to proceed with bedside procedure. Informed consent per chart Daily application of Hydrofera Blue on bilateral gluteal and heel ulcers followed by application of OPTi foam Upon discharge patient can follow-up with me at the wound care center Thank you for consulting general surgery to participate taking care Status: Acute Consult Attestations Medical Necessity Statement: Per hospitalist Time Spent in Patient Care: 16 - 35 minutes (>than 50% of time spent in counselling and/or direct pt care on unit) . Procedures Time out/Consent Time Out Performed: Yes Consent for Procedure: Consent obtained from patient, Risks & Benefits reviewed and Agrees to proceed with procedure Procedure Narrative Pre-procedure diagnosis bilateral heel pressure injury ulcers Post-Procedure diagnosis the same Procedure Sharp debridement of bilateral heel pressure injury ulcers Description of the procedure After thorough history physical examination and reviewing the chart, I counseled the patient for surgical debridement bedside of pressure injury ulcers, informed consent per chart as patient did agree to proceed. Time-out was done verifying the patient's name and date of the procedure and destination after the procedure and the procedure itself,all were in agreement Prep and drape of the designated areas of both heels Sharp debridement was done to both heel ulcers Pre-debridement measurements of left heel ulcer 3 x 3 x 0.1 cm Right heel ulcer 3.5 x 3.5x 0.2 cm Post-debridement measurements of left heel ulcer 3.5 x 3.5 x 0.2 cm Right heel ulcer 4 x [address] to the dermal layer Patient tolerated the procedure well I was present for the whole entire procedure Complications: No immediate complications EBL: Less than 5 mL ml Specimens:none Recommendation to apply Hydrofera Blue daily followed by OPTi Surgeon Sreedhar Post MD Health Program Manager RNs Kacie&Cinthya Location 2 [place] bedside Coding Level of Care Code Acute Auditor Medical Claims for Chg Fwd Diagnoses Pressure ulcer L89.90
--- NOTE | 2019-10-01 14:30 | PC.NURSE ---
Kaylin Victoria RN, Thelma RN, and Denny RN at patient's bedside to complete debridement of bilateral heels. TIME OUT 1434 Debridement of bilateral heels L heel is 3.5x3.5x.1 covered with Hydropherablue and optifoam. R heel 4x4x.1 covered with Hydropherablue and optifoam. daily dressing changes from now on.
--- NOTE | 2019-10-01 15:00 | PC.NURSE ---
Addendum entered by Thelma Johnson RN 10/01/19 18:45: Spoke with patient's daughter Selene who lives in [place]. Daughter was updated that patient received bedside debridement of bilateral heels by Dr. Post and 1 unit of blood. Patient stated that she does not want to go back to [facility] so daughters and patient will discuss placement somewhere in [place] for longterm rehabilitation. Original Note: Spoke with patient's daughter Selene who lives in [place]. Daughter was updated that patient received bedside debridement of bilateral heels and 1 unit of blood. Patient stated that she does not want to go back to [facility] so daughters and patient will discuss placement somewhere in [place] for longterm rehabilitation.
--- NOTE | 2019-10-01 15:10 | PC.NURSE ---
First unit of blood started. Patient is A&O x3. Respirations even and non-labored on 2 liters of oxygen. Patient is Afebrile.
[2019-10-01] MEDS: diclofenac 1% Topical Gel 100 gm 1 APPLIC TOPICAL ×2 (15:19→20:47)
[2019-10-01] MEDS: fentaNYL 12 mcg Patch 1 PATCH TRANSDERMA (15:54)
[2019-10-01 17:04] LABS: Glucose Point of Care 142 mg/dL (70-110)
--- NOTE | 2019-10-01 17:45 | PC.NURSE ---
Blood transfusion completed at this time. Patient tolerated transfusion well. Patient states that her neck pain has improved with K-pack and the Fentanyl patch which is placed on her left chest and secured with tape.
[2019-10-01] MEDS: FUROsemide 10 mg/mL SDV 2mL 20 MG IVP (17:52)
--- NOTE | 2019-10-01 18:02 | USCV_ITS ---
Sheri Acosta Age: 74 Gender: F : 1945 Exam Date: 10/01/2019 06:18 Ordering Phys: Boris Roldan MD Technologist: Eve Louise Exam Location: [facility] [place] Indication: HISTORY OF HEART FAILURE WITH A FIB BP: 144 / 64 HR: 65 Rhythm: Sinus Technical Quality: TDS MEASUREMENTS (Male / Female) Normal Values 2D ECHO LV Diastolic Diameter PLAX 3.9 cm 4.2 - 5.9 / 3.9 - 5.3 cm LV Systolic Diameter PLAX 1.9 cm LV Chamber Size 3.5 cm IVS Diastolic Thickness 2.1 cm 0.6 - 1.0 / 0.6 - 0.9 cm IVS Systolic Thickness 2.0 cm LVPW Diastolic Thickness 1.8 cm 0.6 - 1.0 / 0.6 - 0.9 cm LVPW Systolic Thickness 1.9 cm RV Chamber Size 2.1 cm LVOT Diameter 2.0 cm LV Ejection Fraction 2D Teich 83.9 % LA Diameter 4.7 cm LA Width 2.8 cm LA Height 4.5 cm RA Width 3.4 cm RA Height 4.6 cm Aorta at Sinotubular Diameter 3.3 cm M-MODE LV Diastolic Diameter MM 5.2 cm 4.2 - 5.9 / 3.9 - 5.3 cm LV Systolic Diameter MM 3.4 cm LV Ejection Fraction MM Teich 62.7 % IVS Diastolic Thickness MM 1.6 cm 0.6 - 1.0 / 0.6 - 0.9 cm IVS Systolic Thickness MM 1.8 cm LVPW Diastolic Thickness MM 1.4 cm 0.6 - 1.0 / 0.6 - 0.9 cm LVPW Systolic Thickness MM 1.7 cm RV Diastolic Diameter MM 1.7 cm Aortic Annulus Diameter 3.5 cm LA Ao Ratio MM 1.3 MV E Point Septal Separation 0.4 cm DOPPLER AV Peak Velocity 209.0 cm/s LVOT Peak Velocity 105.0 cm/s AV Area Cont Eq vti 1.8 cm squared AV Area Cont Eq pk 1.6 cm squared MV Area PHT 5.0 cm squared Mitral E to A Ratio 2.4 MV E' Velocity 12.0 cm/s Mitral E to MV E' Ratio 11.5 Mitral E to LV E' Lateral Ratio 10.6 Mitral E to LV E' Septal Ratio 12.8 TR Peak Velocity 329.9 cm/s TR Peak Gradient 43.5 mmHg TR Mean Velocity 250.7 cm/s TR Mean Gradient 28.0 mmHg TR Velocity Time Integral 120.2 cm TV Peak E Velocity 73.0 cm/s Right Atrial Pressure 3.0 mmHg Pulmonary Artery Systolic Pressu 46.5 mmHg PV Peak Velocity 73.0 cm/s RV Acceleration Time 0.2 s RV Ejection Time 0.3 s RV AcT/ET 0.7 FINDINGS Left Ventricle Study is very poor quality. The ventricle is probably normal in size. Only 1 view is acceptable. The ventricle is likely at least lower limit of normal in function. Wall motion disturbances and diastolic function cannot be determined. Right Ventricle Normal right ventricular size and systolic function. Mild pulmonary hypertension, RVSP 46.5 mmHg. Right Atrium Right atrium not well visualized. Left Atrium Left atrium not well visualized. Mitral Valve Mitral valve not well visualized. Aortic Valve Aortic valve not well visualized. Tricuspid Valve Tricuspid valve not well visualized. Pulmonic Valve Pulmonic valve not well visualized. Pericardium Normal pericardium without effusion. Aorta Aorta not well visualized. CONCLUSIONS Study is very poor quality. The ventricle is probably normal in size. Only 1 view is acceptable. The ventricle is likely at least lower limit of normal in function. Wall motion disturbances and diastolic function cannot be determined. Normal right ventricular size and systolic function. Mild pulmonary hypertension, RVSP 46.5 mmHg. Technically limited study. There are no prior echocardiogram studies to compare. Dr. Jamin Fontanez MD (Electronically Signed) Final Date: 01 October 2019 08:30 S
[2019-10-01] MEDS: atorvastatin 40 mg Tablet 20 MG PO (20:44)
[2019-10-01] MEDS: warfarin 5 mg Tablet PO (20:45)
[2019-10-01 21:39] LABS: Glucose Point of Care 144 mg/dL (70-110)
[2019-10-02] VITALS (8 sets, daily range): BP systolic 133–156; BP diastolic 52–76; PULSE 60–69; RESP 16–19; TEMP 37–37.9; O2SAT 93–97
[2019-10-02] MEDS: acetaminophen 325 mg Tablet 650 MG PO (05:06)
[2019-10-02 05:37] LABS: Basophils % 0.2 %; Eosinophils # 0.1 10^3/uL (0.0-0.8); Eosinophils % 2.4 %; Hematocrit 27.4 % (37.0-47.0); Hemoglobin 8.1 g/dL (11.5-15.3); Lymphocytes # 0.8 10^3/uL (0.8-4.8); Mean Corpuscular HGB Conc 29.6 g/dL (30.0-36.0); Mean Corpuscular Hemoglobin 27.4 pg (28.0-34.0); Mean Corpuscular Volume 92.6 fL (81-99); Mean Platelet Volume 9.9 fL (7.4-10.4); Monocytes # 0.4 10^3/uL (0.2-0.9); Monocytes % 7.8 %; Neutrophils # 4.1 10^3/uL (1.8-7.7); Neutrophils % 75.2 %; Nucleated Red Blood Cells % 0 %; Platelet Count 158 10^3/cmm (130-400); Red Blood Count 2.96 10^6/uL (4.1-5.3); Red Cell Distribution Width 14.4 % (12.1-15.1); White Blood Count 5.4 10^3/uL (4.0-10.0)
[2019-10-02 05:55] LABS: INR 2.04 (0.8-1.2)
[2019-10-02 06:05] LABS: Alanine Aminotransferase 22 U/L (0-33); Albumin Level 2.4 g/dL (3.5-5.2); Alkaline Phosphatase 114 IU/L (35-105); Anion Gap 13.3 (5-19); Aspartate Amino Transferase 37 U/L (0-32); Blood Urea Nitrogen 71 mg/dL (8-23); Calcium 9.4 mg/dL (8.5-10.5); Carbon Dioxide 30 mmol/L (22-29); Chloride 101 mmol/L (98-107); Globulin 3.4 g/dL (1.3-4.6); Glucose 65 mg/dL (65-115); Osmolality Calculated 290 mOsm/kg (285-295); Potassium 3.3 mmol/L (3.5-5.1); Sodium 141 mmol/L (136-145); Total Bilirubin 0.6 mg/dL (0.15-1.2); Total Protein 5.8 g/dL (6.6-8.7)
[2019-10-02] MEDS: insulin glargine 100 units/1 mL 50 UNIT SUBCUT (06:15)
[2019-10-02 07:01] LABS: Glucose Point of Care 87 mg/dL (70-110)
[2019-10-02] MEDS: amiodarone 200 mg Tablet 100 MG PO (08:38)
[2019-10-02] MEDS: pantoprazole DR 40 mg Tablet PO (08:38)
[2019-10-02] MEDS: levothyroxine 100 mcg Tablet PO (08:38)
[2019-10-02] MEDS: TORSEmide 20 mg Tablet PO (08:38)
[2019-10-02] MEDS: amlodipine 10 mg Tablet PO (08:38)
[2019-10-02] MEDS: gabapentin 300 mg Capsule PO (08:39)
[2019-10-02] MEDS: metoprolol succinate ER (24 HR) 25 mg Tablet 37.5 MG PO (08:39)
[2019-10-02] MEDS: diclofenac 1% Topical Gel 100 gm 1 APPLIC TOPICAL ×2 (08:41→12:29)
[2019-10-02 10:47] LABS: Glucose Point of Care 89 mg/dL (70-110)
--- NOTE | 2019-10-02 11:59 | PM.DCS ---
Discharge Providers Date of Admission: 09/30/19 15:50 Date of Discharge: October 02, 2019 Attending Provider at Admission: Rubina Bragg MD Attending Provider at Discharge: Boris Roldan MD Consults: Wound care consult: Dr. Post Primary Care Provider: VANESSA Polk Diagnoses at Discharge Discharge Diagnosis (1) Pressure ulcer: Status: Acute (2) Decubital ulcer: Status: Acute (3) Subtherapeutic anticoagulation: Status: Acute (4) Exocrine pancreatic insufficiency: Status: Acute (5) Deep vein thrombosis: Status: Acute (6) Fever of unknown origin: Status: Acute (7) Hypertension: Status: Acute (8) CKD (chronic kidney disease): Status: Acute (9) Diabetes mellitus, type II: Status: Acute (10) Hypothyroid: Status: Acute (11) Atrial fibrillation: Status: Acute (12) Congestive heart failure: Status: Acute Reason for Visit Reason for Visit: Reason For Visit: FEVER, DECUB ULCERS, DM Hospital Course Discharge Summary: Sheri Acosta is a 74 year old female with extensive past medical history of atrial fibrillation, DVT on warfarin, type 2 diabetes mellitus, hyperlipidemia, hypothyroidism, chronic pancreatitis, CKD, congestive heart failure, 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 Patient was transferred to [facility] from [facility] after she was admitted there for 3 days because of generalized weakness which is been going on for last 1 week and was found to have generalized arthralgias and UTI and was discharged on course of ampicillin. Patient was admitted to the floors for work-up of fever of unknown origin. Blood cultures were sent which have remained negative. CT chest abdomen pelvis without contrast was done which was not concerning for any infectious source. Urinalysis was within normal limits. During hospitalization patient was found to have decubitus ulcer at bilateral heels and bilateral gluteal pressure injury ulcers for which wound consult cultures were sent and him remained negative. Wound care consult was done and dressing was started accordingly. CT scan was done to rule out osteomyelitis. As patient had history of congestive heart failure echocardiogram was done which was suboptimal but showed normal right ventricular functions and pulmonary artery hypertension. Patient remained hemodynamically stable, without any leukocytosis, with negative procalcitonin with T-max over 48 hours during hospitalization going up to 99.2 Fahrenheit. Lower limb Dopplers were done and DVT was ruled out. Patient remained afebrile off antibiotics. It is believed her fevers are most likely not infection related and is from bilateral atelectasis for which she has been advised to do incentive spirometry. During hospitalization patient was found to have subtherapeutic INR because of which her dose of Coumadin was adjusted. Her dose of amlodipine has been increased because of high blood pressures. Patient was found to have renal dysfunction with creatinine up to 2.4 which seems to be her baseline for which metolazone was withheld though torsemide was continued. During hospitalization patient was found to have a hemoglobin of around 7 for which 1 unit PRBC transfusion was done and her hemoglobin remained stable and she was started on oral iron supplementation. There is no concern of melena or hematemesis. During hospitalization patient was complaining of neck pain which she attributed to fall either at home or [facility]pc which is not sure right now. CT spine was done and was negative for any acute injury. Physical therapy was done and patient is advised to continue doing physical therapy for possible neck sprain. During hospitalization her dose of insulin was adjusted as well. All the adjustments have been reconciled on discharge medication list. Patient is being discharged in hemodynamically stable condition, afebrile with adjustment done to her medication along with incentive spirometry with advised for aggressive physical therapy. Physical Exam Narrative: EXAM NARRATIVE: General: No acute distress, AO x3, morbidly obese, lying comfortably in bed HEENT: PERRLA, pupils bilaterally equal and reactive Chest: Normal vesicular breath sounds, decreased air entry bilateral bases, associated with occasional rhonchi n CVS: S1-S2 regular, no murmurs, no tachycardia, no gallops, no rubs Abdomen: Soft, nontender, no organomegaly, bowel sounds present Neuro: No focal deficits, no facial deformity, AO x3, power 5/5 in all limbs. Skin:Open ulcer on the left heel about 2 cm irregular and round appears to be stage II-III. There is a developing ulcer with subcutaneous breakdown on the right heel. There are various buttock and presacral ulcers with partial thickness breakdown as well. No induration or erythema locally to any of these skin ulcerations. Urinary Catheter Management^: Waller: Cath Placed During This Visit: yes, but has since been removed by the nurse Reason for Continuing Indwelling Catheter: Decision to DC Catheter Urinary Catheter Date of Insertion: 09/30/19 Urinary Catheter Time of Insertion: 18:00 Date Urinary Catheter Removed: 10/02/19 Time Urinary Catheter Discontinued: 06:24 Discharge Data Data Completed and Pending: Completed Studies During Hospitalization Category Date Time Status CT cervical spin wo con* [id number] Stat Cat Scan 09/30/19 11:[address] chest abd pel wo con Urgent Cat Scan 09/30/19 16:[address] foot LT wo con * [id number] Stat Cat Scan 09/30/19 14:[address] foot RT wo con * [id number] Stat Cat Scan 09/30/19 12:39 Completed XR chest 1V zhanna ble [id number] Stat Exams 09/30/19 11:37 Completed CV echo complete* [id number] Routine Ultrasound 10/01/19 18:02 [place] [id number] Urgent Ultrasound 09/30/19 16:03 Completed Pending at discharge Category Date Time Status Blood Culture Sta t Lab 09/30/19 16:52 Results Clostridium Diffi cile BY PCR Routin e Lab 09/30/19 18:02 Ordered Enteric Bacterial Panel by PCR Rout ine Lab 09/30/19 18:02 Ordered Enteric Parasite Panel by PCR Routi ne Lab 09/30/19 18:02 Ordered Immunochemical Fe carmela OCB Routine Lab 09/30/19 18:02 Ordered Lactoferrin Routi ne Lab 09/30/19 18:02 Ordered Prothrombin Time INR AM LABS Lab 10/03/19 04:00 Ordered Wound Culture and Gram Stain Routin e Lab 09/30/19 18:00 Results Labs from last 24 hours 10/02/19 10/02/19 10/02/19 10:30 06:39 04:50 WBC RBC Hgb Hct MCV MCH MCHC RDW Plt Count MPV Neut % (Auto) Lymph % (Auto) Wagoner % (Auto) Eos % (Auto) Baso % (Auto) Neut # (Auto) Lymph # (Auto) Wagoner # (Auto) Eos # (Auto) Baso # (Auto) Nucleated RBC % (a uto) Nucleated RBCs # PT INR Sodium 141 Potassium 3.3 L Chloride 101 Carbon Dioxide 30 H Anion Gap 13.3 BUN 71 H Creatinine 2.4 H Glucose 65 POC Glucose 89 87 Calculated Osmolal ity 290 Calcium 9.4 Total Bilirubin 0.6 AST 37 H ALT 22 Alkaline Phosphata se 114 H Total Protein 5.8 L Albumin 2.4 L Globulin 3.4 Blood Type Rho(D) Type Antibody Screen Crossmatch 10/02/19 10/02/19 10/01/19 04:50 04:50 21:28 WBC 5.4 RBC 2.96 L Hgb 8.1 L Hct 27.4 L MCV 92.6 MCH 27.4 L MCHC 29.6 L RDW 14.4 Plt Count 158 MPV 9.9 Neut % (Auto) 75.2 Lymph % (Auto) 14.0 Wagoner % (Auto) 7.8 Eos % (Auto) 2.4 Baso % (Auto) 0.2 Neut # (Auto) 4.1 Lymph # (Auto) 0.8 Wagoner # (Auto) 0.4 Eos # (Auto) 0.1 Baso # (Auto) 0.0 Nucleated RBC % (a uto) 0 Nucleated RBCs # 0.0 PT 23.70 H INR 2.04 H Sodium Potassium Chloride Carbon Dioxide Anion Gap BUN Creatinine Glucose POC Glucose 144 Calculated Osmolal ity Calcium Total Bilirubin AST ALT Alkaline Phosphata se Total Protein Albumin Globulin Blood Type Rho(D) Type Antibody Screen Crossmatch 10/01/19 10/01/19 16:52 13:36 WBC RBC Hgb Hct MCV MCH MCHC RDW Plt Count MPV Neut % (Auto) Lymph % (Auto) Wagoner % (Auto) Eos % (Auto) Baso % (Auto) Neut # (Auto) Lymph # (Auto) Wagoner # (Auto) Eos # (Auto) Baso # (Auto) Nucleated RBC % (a uto) Nucleated RBCs # PT INR Sodium Potassium Chloride Carbon Dioxide Anion Gap BUN Creatinine Glucose POC Glucose 142 Calculated Osmolal ity Calcium Total Bilirubin AST ALT Alkaline Phosphata se Total Protein Albumin Globulin Blood Type B Positive Rho(D) Type Positive Antibody Screen Negative Crossmatch See Detail Vitals: Last Vital Signs Temp 98.8 F 10/02/19 10:58 Pulse 63 10/02/19 10:58 Resp 18 10/02/19 10:58 BP 156/52 10/02/19 10:58 Pulse Ox 95 10/02/19 10:58 Discharge Plan Discharge Patient Disposition: Xfer SNF Condition: Stable Prescriptions: New fentanyl 12 mcg/hr Patch 72 Hour 1 patch transdermal Q72H Qty: 5 RF: 0 diclofenac sodium 1 % Gel 1 applic topical QID Qty: 50 RF: 0 gabapentin 300 mg Capsule 300 mg PO BID Qty: 60 RF: 0 levothyroxine [Levoxyl] 100 mcg Tablet 100 mcg PO DAILY Qty: 30 RF: 0 insulin aspart U-100 [Novolog U-100 Insulin aspart] 100 unit/mL Solution 0 unit SUBCUT WM&BEDTIME Qty: 100 RF: 0 amlodipine 10 mg Tablet 10 mg PO DAILY Qty: 30 RF: 0 warfarin 5 mg Tablet 5 mg PO DAILY@2100 Qty: 30 RF: 0 Continued Miralax 17 gram Powder In Packet 17 g PO DAILY PRN (Reason: Constipation) RF: 0 bisacodyl 10 mg Suppository 10 mg UT DAILY PRN (Reason: Constipation) RF: 0 Enema Disposable 19-7 gram/118 mL Enema 118 ml UT DAILY PRN (Reason: Constipation) RF: 0 ergocalciferol (vitamin D2) 1,250 mcg (50,000 unit) capsule 50,000 unit PO Q7D RF: 0 Santyl 250 unit/gram Ointment See Rx Instructions .ROUTE .COMPLEX RF: 0 Biofreeze (menthol) 4 % Gel See Rx Instructions .ROUTE .COMPLEX RF: 0 menthol 4 % Cream See Rx Instructions .ROUTE .COMPLEX RF: 0 atorvastatin 20 mg Tablet 20 mg PO DAILY RF: 0 acetaminophen 500 mg Tablet 500 mg PO Q4H PRN (Reason: Pain) RF: 0 dicyclomine 10 mg Capsule 10 mg PO TID RF: 0 amiodarone 100 mg Tablet 100 mg PO DAILY RF: 0 Creon 36,000-114,000- 180,000 unit Capsule,Delayed Release(Dr/Ec) 2 cap PO TID RF: 0 baclofen 5 mg Tablet 2.5 mg PO TID PRN (Reason: unknown) RF: 0 torsemide 20 mg Tablet 20 mg PO DAILY RF: 0 Senna-S 8.6-50 mg Tablet 1 tab PO BID PRN (Reason: unknown) RF: 0 Protonix 40 mg Tablet,Delayed Release (Dr/Ec) 40 mg PO DAILY RF: 0 metoprolol succinate 25 mg Tablet Extended Release 24 Hr 37.5 mg PO DAILY RF: 0 Multi Complete with Iron 18-400 mg-mcg Tablet 1 tab PO DAILY RF: 0 Prostat 30ml See Rx Instructions .ROUTE .COMPLEX RF: 0 MediHoney (honey) 80 % Gel See Rx Instructions .ROUTE .COMPLEX RF: 0 Barrier Cream See Rx Instructions .ROUTE .COMPLEX RF: 0 Changed Tresiba FlexTouch U-200 200 unit/mL (3 mL) Insulin Pen 50 unit SUBCUT QAM Qty: 100 RF: 0 Discontinued amlodipine 5 mg Tablet 5 mg PO DAILY RF: 0 gabapentin 600 mg Tablet 600 mg PO TID RF: 0 metolazone 5 mg Tablet 5 mg PO EVERY OTHER DAY RF: 0 levothyroxine 100 mcg Tablet 100 mcg PO DAILY RF: 0 warfarin 2.5 mg Tablet See Rx Instructions .ROUTE .COMPLEX RF: 0 warfarin 5 mg Tablet See Rx Instructions .ROUTE .COMPLEX RF: 0 Novolog Flexpen U-100 Insulin 100 unit/mL (3 mL) Insulin Pen 40 unit SUBCUT TID RF: 0 No Action (DME) Skin Prep Wipes RF: 0 Discharge Orders: Discharge Order (Routine); Ordered 10/02/19 Ordered By: Boris Roldan Discharge Diet: Cardiac and Diabetic Discharge Activity: Resume usual activity and As per PT/OT instructions Activity Restrictions/Additional Instructions: Daily application of Hydrofera Blue on bilateral gluteal and heel ulcers followed by application of OPTi foam Upon discharge patient can follow-up with me at the wound care center. Patient should follow-up with wound care center. Patient would benefit for extensive physical therapy. Dose of warfarin has been changed. Please check INR in 1 week. Dose of insulin has been changed. Dose of amlodipine has been changed. Discharge Attestations Time Spent in Discharge Care*: greater than 30 min Specific Discharge Activities: Specific discharge activities: discussing with bottle caser/social workers/dc planners, documenting/other paperwork and evaluating patient/reviewing data Status at Discharge: Cognitive status at discharge: mildly impaired cognition, Behavioral status at discharge: cooperative, Functional status at discharge: other assisted ambulation Overall status at discharge: patient is progressing back to baseline Quality Metrics Clinical Quality Measures During this hospital stay, did patient experience: None Coding Level of Care Code Acute Supervisor Sample Preparation for [facility] Fwd Diagnoses Pressure ulcer L89.90 Decubital ulcer L89.90 Subtherapeutic anticoagulation Z51.81; Z79.01 Exocrine pancreatic insufficiency K86.81 Deep vein thrombosis I82.409 Fever of unknown origin R50.9 Hypertension I10 CKD (chronic kidney disease) N18.9 Diabetes mellitus, type II E11.9 Hypothyroid E03.9 Atrial fibrillation I48.91 Congestive heart failure I50.9
[2019-10-02 16:26] LABS: Glucose Point of Care 197 mg/dL (70-110)
== END 2019-10-02 17:13 | disposition skilled nursing facility (03) | DRG 864 ==
LOC: ER 16:23 → MEDSURG 16:34
PROVIDERS: Admitting Provider Student in an Organized Health Care Education/Training Program; Emergency Provider Family Medicine; PCP Nurse Practitioner; Visit Provider Student in an Organized Health Care Education/Training Program
DX: R50.9 Fever, unspecified (principal); L89.623 Pressure ulcer of left heel, stage 3; I13.0 Hypertensive heart and chronic kidney disease with heart failure and stage 1 through stage 4 chronic kidney disease, or unspecified chronic kidney disease; K86.1 Other chronic pancreatitis; Z68.42 Body mass index [BMI] 45.0-49.9, adult; I48.91 Unspecified atrial fibrillation; N18.9 Chronic kidney disease, unspecified; E11.22 Type 2 diabetes mellitus with diabetic chronic kidney disease; E03.9 Hypothyroidism, unspecified; Z79.01 Long term (current) use of anticoagulants; K86.81 Exocrine pancreatic insufficiency; E78.5 Hyperlipidemia, unspecified; E66.01 Morbid (severe) obesity due to excess calories; Z86.718 Personal history of other venous thrombosis and embolism; L89.616 Pressure-induced deep tissue damage of right heel; L89.329 Pressure ulcer of left buttock, unspecified stage; L89.319 Pressure ulcer of right buttock, unspecified stage
CPT/HCPCS: 12345; 36415; 36416; 36430; 36600; 51702; 71045; 71250; 72125; 73700; 74176; 80051; 80053; 81003; 82009; 82810; 82962; 83540; 83550; 83605; 83690; 83880; 83986; 84145; 84443; 85025; 85610; 85651; 86140; 86850; 86900; 86920; 87040; 87070; 87077; 87186; 87205; 87641; 93005; 93306; 93970; 94664; 96372; 96375; 97110; 97163; 97167; 99284; J1815; J1940; J2270; J2405; J2543; J3370; J7030; J7050; P9016